=== PATIENT | male | born 1945 | race Caucasian/White ===

== ENCOUNTER 2019-03-07 22:16 | Emergency (ER) | payer OTHER ==
[~2019-03-07] VITALS: Ht 172.7 cm; Wt 72.7 kg
[2019-03-07 22:25] VITALS: BP 148/76; PULSE 80; RESP 18; Ht 172.7 cm; Wt 72.7 kg
[2019-03-08] MEDS ORDERED: LIDOCAINE 1% (MDV) 20 ML INJ SC ONE (02:00)
[2019-03-08] MEDS ORDERED: IBUPROFEN 600 MG TAB PO ONE (02:00)
--- NOTE | 2019-03-08 02:11 | ERD ---
ER Documentation Chief Complaint Chief Complaint skin abscess mid back 1 month HPI This is a 73-year-old male patient who presents to the emergency room with complaint of abscess to the middle of his back increasing in size over 1 month. Patient states he has seen his primary care doctor for this who does not do in cision and drainage in the hospital and has been trying to refer him to dermatology. Patient states abscess is getting larger and pain is severe and he does not want to wait for dermatology referral. Denies any other symptoms such as fever, back pain, difficulty bending or flexing, no paresthesias. ROS All systems reviewed and are negative except as per history of present illness. Medications Home Meds Active Scripts Acetaminophen* (Tylophen*) 500 Mg Capsule, 2 CAP PO Q8H PRN for PAIN AND OR ELEVATED TEMP, #20 CAP Prov:BRAYDON GUSTAFSON [employer] 03/08/19 Allergies Allergies: Coded Allergies: No Known Allergy (Unverified , 03/08/19) PMhx/Soc History of Surgery: Yes (GALL BLADDER REMOVAL ) Anesthesia Reaction: No Hx Neurological Disorder: No Hx Respiratory Disorders: No Hx Cardiac Disorders: Yes (HTN) Hx Psychiatric Problems: No Hx Miscellaneous Medical Probl: Yes (ARTHRITIS, GERD) Hx Alcohol Use: No Hx Substance Use: No Hx Tobacco Use: No Smoking Status: Never smoker FmHx Family History: No diabetes, No coronary disease, No other Physical Exam Vitals Vital Signs Date Temp Pulse Resp B/P (MAP) Pulse Ox O2 O2 Flow FiO2 Time Delivery Rate 03/07/19 97.9 80 18 148/76 97 22:25 (100) Physical Exam Const: No acute distress Head: Atraumatic Eyes: Normal Conjunctiva, PERRL ENT: Normal External Ears, Nose and Mouth. Neck: Full range of motion. No meningismus. No lymphadenopathy Resp: Clear to auscultation bilaterally Cardio: Regular rate and rhythm, no murmurs Abd: Soft, non tender, non distended. Normal bowel sounds Skin: No petechiae or rashes. Left mid back: 4cm x 4cm furuncle, fluctuant, +pus filled central head, mild erythema, periwound skin normothermic Back: No midline or flank tenderness, FROM, neg Brudzinski Ext: No cyanosis, or edema Neur: Awake and alert, clear speech, steady gait Psych: Normal Mood and Affect Results 24 hrs Current Medications Medications Dose Sig/Blake Start Time Status Last (Trade) Ordered Route PRN Stop Time Admin Dose Reason Admin Lidocaine 20 ml ONCE ONCE 03/08/19 DC (Xylocaine SC 02:00 1% (Mdv) 20 03/08/19 02:01 ml) Ibuprofen 600 mg ONCE ONCE 03/08/19 DC 03/08/19 (Motrin) PO 02:00 01:54 03/08/19 02:01 Procedures/MDM PROCEDURES/MDM PROCEDURES: Abscess Incision and Drainage with irrigation by me: Location: Left mid back Anesthesia: Local 1% Lidocaine Technique: 1 cm incision resulting in copious thick puruent, malodorous drainage. Disrupted loculations w/ instrumentation. Copius NS irrigation Packing: None Complications: Neurovascularly intact post procedure 48 hour wound check with PMD. Scar minimization instructions given. Wound care instructions provided. Pt tolerated well. -Medications: Ibuprofen Patient tolerated medication well with no adverse reactions. Patient reported improvement in pain. MDM: This is a 73-year-old male patient who presents emergency room with simple cutaneous abscess to middle of right side of back. Patient states he has been waiting for referral to dermatology to have incision and drainage however he is in pain and would like to have procedure done today. Incision and drainage performed with very good results. No packing placed, patient instructed on wound care and follow-up with primary care provider. Antibiotics not indicated at this time as there are no signs of cellulitis such as redness, swelling, tenderness, systemic symptoms such as fever. A serious, rapidly progressive infectious process is unlikely based upon the patients presentation and appearance of the abscess. The patient has been instructed on signs and symptoms of acute progression of infection and to return immediately if any of these occur. DISPOSITION and PLAN: RX: Tylenol The patient has been discharge home to follow-up with community physician. Departure Diagnosis: Primary Impression: Abscess Condition: Stable BRAYDON GUSTAFSON NP Mar 08, 2019 02:11
[2019-03-08] MEDS ORDERED: ACET500C5 PO (03:57)
== END 2019-03-08 04:14 | disposition home or self-care (01) ==
LOC: FTE 22:16
DX: L02.212 Cutaneous abscess of back [any part, except buttock and flank] (principal); I10 Essential (primary) hypertension